=== PATIENT | female | born 1960 | race Caucasian/White ===

== ENCOUNTER 2021-09-26 00:32 | Day surgery (SDC) | payer OTHER, SELFPAY ==
[2021-09-15 12:33] VITALS: BMI 31.6
[2021-09-26 08:09] VITALS: BP 117/82; PULSE 76; RESP 18; TEMP 36.1; O2SAT 95
[2021-09-26] MEDS: LACTATED RINGERS 1,000 ML 150 ML IV CONT (08:11)
--- NOTE | 2021-09-26 08:41 | WPDANESEPPF ---
Anes - Initial Pre Proc Eval Procedure: Operation Date: 09/26/21 09:30 Proposed Procedures p Screening Colonoscopy - Isaiah Rankin MD Date/Time: 09/26/21 08:41 Surgeon: Isaiah Rankin MD Pre Op Diagnosis: hx of colon polyps, neoplasm screening Patient Data Age: 61 Gender: F Height: 1.78 m Weight: 97.1 kg Last Vital Signs Temp 97 F L 09/26/21 08:09 Pulse 76 09/26/21 08:09 Resp 18 09/26/21 08:09 BP 117/82 09/26/21 08:09 Pulse Ox 95 09/26/21 08:09 Allergies Allergy/AdvReac Type Severity Reaction Status Date / Time No Known Allergies Allergy Mild Unverified 09/26/21 08:08 Home Medications Medication Instructions Recorded Confirmed Type lorazepam [Ativan] 2 mg PO PRN PRN 09/15/21 09/26/21 History Patient hx anesthesia problems: none Family hx anesthesia problems: none Results Review: All pre-operative results and documents have been reviewed as part of the pre-operative evaluation. [facility] Past Medical History Medical History (System 09/11/21 @ 16:33 by Ale Tuttle) History of anxiety History of depression History of hepatitis C Surgical History Surgical History (System 09/11/21 @ 16:33 by Ale Tuttle) History of appendectomy History of cardiac radiofrequency ablation Social History Social History (System 09/11/21 @ 16:33 by Ale Tuttle) Smoking packs per day: 2 Smoking cigarettes per day: 40.0 Years smoked: 30 Smoking pack-years: 60.00 Smoking status: Current some day smoker Tobacco type: e-cigarettes/vaping Alcohol intake: current Alcohol use details: Occasional social drinking Substance use: current Substance use type: marijuana Living arrangements: with family Spiritual care concerns: No Anes - Eval Final PreProcedure Day of Procedure 09/26/21 08:41 Patient weight: obese Heart: regular rate and rhythm Lungs: clear to auscultation Airway: Mallampati scale class II Neurological: alert and oriented Last oral intake: >/= 8 hours ASA classification: III Emergent: no Anesthetic plan: proceed Anesthesia type and monitoring: general GIVS and standard monitoring Results Review: All pre-operative results and documents have been reviewed as part of the pre-operative evaluation. Informed Consent: The patient's anesthetic plan and its attendant risks and benefits were discussed with the patient/family/POA. Questions were solicited and answers provided to the satisfaction of the patient/family/POA.
--- NOTE | 2021-09-26 09:05 | PM.HPGS ---
History of Present Illness History of Present Illness Consent: Risks, benefits, and alternatives have been discussed and questions answered. Patient agrees to proceed with procedure. Chief complaint: hx of colon polyps, neoplasm screening Narrative: Marissa Leung is a 61 year old female with colon polyp in 2017 Review of Systems Constitutional: Constitutional: Denies headache(s) and Denies weakness Eyes: Eyes: Denies blurry vision ENT: Reports Normal hearing present, Denies headache(s) and Denies neck pain Cardiovascular: Cardiovascular: Denies chest pain and Denies dyspnea Respiratory: Respiratory: Denies dyspnea Gastrointestinal: Gastrointestinal: Reports no additional gastrointestinal complaints Genitourinary: Genitourinary: Denies dysuria Musculoskeletal: Musculoskeletal: Denies neck pain Integumentary/Breasts: Skin/Breast: Denies dry skin Neurologic: Reports Normal hearing present, Denies headache(s) and Denies weakness Psychiatric: Psychiatric: Denies anxiety Endocrine: Endocrine: Denies change in body appearance Hematologic/Lymphatic: Hematologic/Lymphatic: Denies easy bleeding Allergic/Immunologic: Allergic/Immunologic: Denies urticaria PMFSH Past Medical History Medical History (Updated 09/26/21 @ 09:06 by Isaiah Rankin MD) Adenomatous colon polyp History of anxiety History of depression History of hepatitis C Surgical History Surgical History (System 09/11/21 @ 16:33 by Ale Tuttle) History of appendectomy History of cardiac radiofrequency ablation Social History Social History (System 09/11/21 @ 16:33 by Ale Tuttle) Smoking packs per day: 2 Smoking cigarettes per day: 40.0 Years smoked: 30 Smoking pack-years: 60.00 Smoking status: Current some day smoker Tobacco type: e-cigarettes/vaping Alcohol intake: current Alcohol use details: Occasional social drinking Substance use: current Substance use type: marijuana Living arrangements: with family Spiritual care concerns: No Meds Home Medications and Allergies Home Medications Medication Instructions Recorded Confirmed Type lorazepam [Ativan] 2 mg PO PRN PRN 09/15/21 09/26/21 History Allergies Allergy/AdvReac Type Severity Reaction Status Date / Time No Known Allergies Allergy Mild Unverified 09/26/21 08:08 Vital Signs Vital Signs - 24 hr 09/26/21 08:09 Temperature 97 F L Pulse Rate 76 Respiratory Rate 18 Blood Pressure 117/82 Pulse Oximetry 95 Exam Const: General: comfortable and no acute distress HENMT: General nose exam: Normal nares present Eyes: General: appearance normal, both eyes and all related structures Neck: Neck: no JVD Resp: Auscultation: clear to auscultation bilaterally Cardio: Rate: regular rate Rhythm: regular rhythm GI: Inspection: non-distended GI Palp: Yes Soft to palpation Skin: General skin exam: normal color Neuro: General: gait normal Speech: normal speech Extrem: General: normal to inspection Psych: Mental Status: mental status grossly normal Assessment and Plan Assessment and plan (1) Adenomatous colon polyp: Code(s): D12.6 - Benign neoplasm of colon, unspecified Status: Acute Assessment and Plan: colonoscopy
[2021-09-26 09:34] VITALS: BP 111/71; PULSE 62; RESP 19; O2SAT 97
[2021-09-26 09:44] VITALS: BP 103/66; PULSE 65; RESP 18; O2SAT 96
[2021-09-26 09:54] VITALS: BP 103/65; PULSE 58; RESP 15; O2SAT 94
== END 2021-09-26 10:13 | disposition home or self-care (01) ==
PROVIDERS: PCP Emergency Medicine; Visit Provider Internal Medicine Gastroenterology
PROC: 0DJD8ZZ Inspection of Lower Intestinal Tract, Via Natural or Artificial Opening Endoscopic (ICD-10-PCS; CPT 45378; principal; 2021-09-26 09:30)
DX: Z12.11 Encounter for screening for malignant neoplasm of colon (principal); D12.3 Benign neoplasm of transverse colon; D12.4 Benign neoplasm of descending colon; K57.30 Diverticulosis of large intestine without perforation or abscess without bleeding; K64.8 Other hemorrhoids; F41.8 Other specified anxiety disorders; Z86.19 Personal history of other infectious and parasitic diseases; F17.290 Nicotine dependence, other tobacco product, uncomplicated; F12.90 Cannabis use, unspecified, uncomplicated; E66.9 Obesity, unspecified; Z68.30 Body mass index [BMI] 30.0-30.9, adult
CPT/HCPCS: 45385; 88305; J2704; J7120

== ENCOUNTER 2022-01-22 13:50 | Emergency (ER) | payer BC, SELFPAY ==
[2022-01-22 13:58] VITALS: BP 136/89; PULSE 88; RESP 16; TEMP 36.7; O2SAT 97
--- NOTE | 2022-01-22 14:06 | ED.URI ---
HPI - URI/Sore Throat General Chief Complaint: Upper Respiratory Infection Stated Complaint: sore throat, cold sypmtoms Source: patient and RN notes reviewed Mode of arrival: ambulatory Limitations: no limitations History of Present Illness HPI Narrative: 61-year-old female presented for complaint of sore throat, mild cough and chest tightness for over 1 week. For the last 5 days she has taken an old prescription of penicillin and started taking Mucinex, she thinks it is improving some. Denies shortness of breath, wheezing, nausea, vomiting, diarrhea, fevers or chills. Endorses sick contacts, states she is taken negative home COVID test. MD elicited complaint: cough Related Data Home Medications Medication Instructions Recorded Confirmed lorazepam 2 mg tablet (Ativan) 2 mg PO PRN PRN Anxiety 09/15/21 09/26/21 Allergies Allergy/AdvReac Type Severity Reaction Status Date / Time No Known Allergies Allergy Mild Verified 11/30/21 07:50 Review of Systems Review of Systems: CONSTITUTIONAL: Denies malaise, chills, sweats, fever EYES: Denies visual changes, redness, or discharge ENT: Denies rhinorrhea, congestion, sinus pain, otalgia, sore throat CARDIOVASCULAR: Denies chest pain, palpitations, edema RESPIRATORY: Reports cough, post nasal drainage. Denies dyspnea GASTROINTESTINAL: Denies abdominal pain, nausea, vomiting, diarrhea SKIN: Denies rash or itching MUSCULOSKELETAL: Denies myalgia NEUROLOGIC: Denies headache PMFSH Past Medical History Medical History Adenomatous colon polyp Arthritis COPD (chronic obstructive pulmonary disease) History of anxiety History of depression History of hepatitis C Surgical History Surgical History History of appendectomy History of cardiac radiofrequency ablation Family History Family History Other Family history of cancer Heart disease Hypertension Social History Social History Smoking packs per day: 2 Smoking cigarettes per day: 40.0 Years smoked: 30 Smoking pack-years: 60.00 Smoking status: Current some day smoker Tobacco type: e-cigarettes/vaping Alcohol intake: current Alcohol use details: Occasional social drinking Substance use: current Substance use type: marijuana Gender identity (if verbalized by the patient): Female Spiritual care concerns: No Exam Narrative: GENERAL: Ill-appearing, nontoxic EYES: conjunctivae clear ENT: Mucous membranes moist. TMs pearly wu with dull light reflex bilaterally; no tragal tenderness. Oropharynx erythematous without lesions or exudate, no drooling, no hoarseness, no trismus, uvula midline. CHEST: Clear to auscultation, breath sounds equal. No wheezing, rhonchi, rales, or stridor. No respiratory distress, speaks in full sentences. HEART: Regular rate and rhythm. No murmur heard. SKIN: Warm, dry, no rash. NEURO: Alert and oriented x3. PSYCH: Normal mood and affect Course Course Emergency Course: Patient is aware of diagnosis, understands and agrees to treatment plan. Anticipatory guidance given. Patient agrees to follow-up as directed and is aware of reasons to seek care at the emergency department. Portions of this record may have been created with voice recognition software Level of Care: Express Care Visit Vital Signs Vital signs: Vital Signs Temperature 98.1 F 01/22/22 13:58 Pulse Rate 88 01/22/22 13:58 Respiratory Rate 16 01/22/22 13:58 Blood Pressure 136/89 01/22/22 13:58 Pulse Oximetry 97 01/22/22 13:58 Temperature 98.1 F 01/22/22 13:58 Pulse Rate 88 01/22/22 13:58 Respiratory Rate 16 01/22/22 13:58 Blood Pressure 136/89 01/22/22 13:58 Pulse Oximetry 97 01/22/22 13:58 reviewed MDM - URI/Sore Throat MDM N
== END 2022-01-22 14:12 | disposition home or self-care (01) ==
PROVIDERS: Emergency Provider Nurse Practitioner Family; PCP Emergency Medicine
DX: J40 Bronchitis, not specified as acute or chronic (principal); J44.9 Chronic obstructive pulmonary disease, unspecified; M19.90 Unspecified osteoarthritis, unspecified site; F41.9 Anxiety disorder, unspecified; F17.290 Nicotine dependence, other tobacco product, uncomplicated
CPT/HCPCS: 99213; G0463

== ENCOUNTER 2022-07-27 09:51 | Outpatient (CLI) | payer BC, SELFPAY ==
--- NOTE | 2022-07-27 13:53 | WPDPFTINT ---
PFT Procedure Performed PFT Procedure Performed Spirometry with Pre/Post Bronchodilator Plethysmography (Lung Vol) Diffusing Cap (DLCO) Flow Vol Loop PFT Interpretation Lung volumes were measured with the body plethysmography method. The diminished expiratory reserve volume is related to obesity. The remaining lung volumes are unremarkable. Spirometry showed normal FVC, normal FEV1, diminished mid-expiratory flow rates at 44% predicted, and a diminished FEV1 to FVC ratio 64% suggestive of mild obstructive airway disease. Following administration of a bronchodilator there was significant increase in the expiratory flow rates. Lung diffusion capacity is within the normal range at 80% predicted. The flow-volume loop is consistent with small airway disease. Impression: Mild obstructive airway disease mostly in the form of small airway dysfunction. Significant response to bronchodilators. Lung diffusion capacity within normal range.
== END 2022-07-27 09:52 | disposition home or self-care (01) ==
PROVIDERS: PCP Emergency Medicine; Visit Provider Emergency Medicine
DX: J43.2 Centrilobular emphysema (principal); R94.2 Abnormal results of pulmonary function studies
CPT/HCPCS: 94060; 94726; 94729

== ENCOUNTER 2023-08-19 10:28 | Outpatient (CLI) | payer BC, SELFPAY ==
--- NOTE | ~2023-08-19 | MR_ITS ---
EXAMINATION: MR brain/brain stem wo/w con DATE: 08/19/2023 11:22 INDICATION: Memory loss. TECHNIQUE: Magnetic resonance imaging (MRI) of the brain and brainstem was performed without and with 20 mL MultiHance intravenous contrast. COMPARISON: None. FINDINGS: There are scattered areas of nonspecific increased T2-weighted signal intensity in the cere bral white matter, which is within normal limits for the patient's age. There is no intracranial hemo rrhage, acute infarction, or abnormal intracranial mass lesion. The ventricles are normal in size. Th e paranasal sinuses are clear. There are likely changes of ocular lens replacement surgeries. The mas toid air cells are normal. IMPRESSION: 1. Normal aging brain. Reviewed, dictated and finalized at location A. T DEMONSTRATOR IMPRESSION: 1. Normal aging brain.
== END 2023-08-19 10:29 | disposition home or self-care (01) ==
PROVIDERS: PCP Emergency Medicine; Visit Provider Emergency Medicine
DX: R41.3 Other amnesia (principal)
CPT/HCPCS: 70553; A9577

== ENCOUNTER 2024-10-12 01:19 | Day surgery (SDC) | payer OTHER, SELFPAY ==
[2024-10-06 10:53] VITALS: BMI 33.3
--- OUTSIDE RECORDS SUMMARY | 2024-10-12 01:29 | XMS_ITS | Clinical Summary ---
Author Organization [facility] Address [address] [place] [address] Care Team Providers Care Rehab Department Manager Name Role Phone Devna Breaux MD Primary Care Provider [phone] Source Comments [facility],non-owned Affiliates and Associated Physician Practices is amultiple site organization consisting of ambulatory clinics and hospital sitesin [place], [place], [place] and [place]. This disclosure is being madepursuant to the Care Everywhere program and may not contain all information available regarding this patient. Last updated 18.[facility] Allergies No known active allergies Medications * Be aware that medications may not be up to date on this document. Alwaysverify current medications with the patient. Medication Sig Dispensed Refills Start Date End Date Status LORazepam (ATIVAN) 2 MG tablet 04/14/2021 Active semaglutide (Ozempic) 2 MG/1.5ML pen Inject 0.5 (one-half) mg subcutaneously every 7 days 07/12/2022 Active escitalopram (Lexapro) 10 MG tablet Take 1 (one) tablet by mouth once daily 06/12/2022 Active Active Problems Problem Noted Date Diagnosed Date Palpitations 07/24/2022 Assessment & Plan (07/24/2022 11:11 AM [employer]): Patient reported palpitations and generally feeling off when she saw Dr. Ribera in May. She stopped drinking caffeinated soda 2-3 days after her last visit, and her symptoms completely resolved other than rare palpitations. Event monitor showed symptomatic PVCs with 1% burden. -No indication for PVC ablation at this time with low burden. -Avoid caffeine. -Follow up in 1 year with dave Daniel. Class 2 obesity 07/23/2021 Fatty liver 07/23/2021 Overview (06/07/2022): Overall has had nl aminotransferases with mild elevations in ALP 12/21/2014 CT w/contrast hepatic steatosis, sigmoid diverticulosis 08/09/2021 steatosis, borderline splenomegaly 05/31/22 Fibroscan CAP 371, LSM 6.7 kPa Polycythemia 05/22/2021 VT (ventricular tachycardia) 02/15/2012 Overview (07/23/2021): Overview: S/p ablation with recurrence in the Ep lab. 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 Encounters Date Type Department Care Team Description 10/06/2024 Telephone [facility] [address] [facility] [place] [address] Cristopher Gunderson MD Appointment from Last 3 Months Family History Medical History Relation Name Comments Cancer - Renal Mother Relation Name Status Comments Mother Social History Tobacco Use Types Packs/Day Years Used Date Smoking Tobacco: Former Cigarettes 1.5 30 1 980 - 2009 Smokeless Tobacco: Never Tobacco Cessation:Counseling Given: Not Answered Alcohol Use Standard Drinks/Week Comments Yes 0 (1 standard drink = 0.6 oz pur e alcohol) 2 times a year: 5-6 each time Sex and Gender Information Value Date Recorded Sex Assigned at Not on file Gender Identity Not on file Sexual Orientation Not on file Last Filed Vital Signs Vital Sign Reading Time Taken Comments Blood Pressure 147/94 05/31/2022 3:45 PM [employer] Pulse 76 05/31/2022 3:45 PM [employer] Temperature 36.6 C (97.8 F) 05/31/2022 3:45 PM [employer] Respiratory Rate 16 02/27/2020 3:20 PM CDT Oxygen Saturation 97% 05/31/2022 3:45 PM [employer] Inhaled Oxygen Concentration - - Weight 104.3 kg (230 lb) 07/24/2022 10:24 AM [employer] Height 175.3 cm (5' 9 ) 07/24/2022 10:24 AM [employer] Body Mass Index 33.97 07/24/2022 10:24 AM [employer] Plan of Treatment Health Maintenance Due Date Last Done Comments BONE DENSITY TESTING 1959 COLOGUARD (AGES 45-75) - COLON CA SCREENING 1959 COLON MONITORING 1959 COLONOSCOPY - COLON CA SCREENING 1959 CT COLONOGRAPHY - COLON CA SCREENING 1959 Colorectal Cancer Screening 1959 FIT - COLON CA SCREENING 1959 FLEX SIG - COLON CA SCREENING 1959 HIV SCREENING 1974 DTAP/TDAP/TD VACCINES (1 - Tdap) 1978 PAP SMEAR 07/05/2001 07/05/1998 LUNG CANCER SCREENING 2009 PNEUMOCOCCAL VACCINE 50+ (1 of 1 - PCV) 2009 ZOSTER VACCINE (1 of 2) 2009 LIPID TESTING 10/27/2015 10/26/2010, 02/19, 07/22/1998, Additional history exists MAMMOGRAM 05/03/2023 05/03/2021 COVID-19 VACCINE ( season) 2024 10/17/2020, 09/16/2020 INFLUENZA VACCINE (#1) 2024 2, 05/17/2020, 05/25/2019, Additional history exists DEPRESSION SCREENING 07/22/2024 SCREENING FOR DIABETES 05/31/2025 2, 02/17/2012, 02/16/2012, Additional history exists Respiratory Syncytial Virus (RSV) Vaccine Pt: or over 60 yrs (1 - 1-dose 75+ series) 2034 HEPATITIS C SCREENING Completed 07/20/2021 , 07/20/2021, 11/07/2010 HEPATITIS B VACCINE Aged Out No longe r eligible based on patient's age to complete this topic HIB VACCINE Aged Out No longer eligi ble based on patient's age to complete this topic HPV VACCINE Aged Out No longer eligi ble based on patient's age to complete this topic MENINGOCOCCAL (Group B) VACCINE SHARED DECISION-MAKING Aged Out No longer eligible based on patient's age to complete this topic MENINGOCOCCAL GROUPS A/C/Y/W VACCINE Aged Out No longer eligible based on patient's age to complete this topic Goals Goal Patient Goal Type Associated Problems Recent Progress Patient-Stated? Author Medication Management General On track( 022 11:04 AM [employer]PER[employer]) Dyan Martinez, RN Note: Expected end date: ongoing Interventions: Take all medications as prescribed Let your doctor know right away about any changes in your medications Make sure to request a refill of your medication at least one week prior to your last dose Procedures Procedure Name Priority Date/Time Associated Diagnosis Comments COMPREHENSIVE METABOLIC PANEL Routine 05/31/2022 9:15 AM [employer] Fatty liver Hepatic fibrosis LIPID PROFILE Routine 10/26/2010 3:54 PM CDT CYTOLOGY SMEAR PAP THIN PREP AGUILA 07/05/1998 10:16 AM [employer]PER[employer]KS from Last 3 Months or Most Recently Relevant to Health Maintenance Results * (ABNORMAL) COMPREHENSIVE METABOLIC PANEL (05/31/2022 9:15 AM [employer]PER[employer]) Glucose 103(H) 65 - 99 mg/dL [facility] Comment: Fasting reference interval For someone without known diabetes, a glucose value between 100 and 125 mg/dL is consistent with prediabetes and should be confirmed with a follow-up test. BUN 14 7 - 25 mg/dL [facility] Creatinine 0.79 0.50 - 1.05 mg/dL [facility] eGFR by Cystatin C 84 > OR = 60 mL/min/1. 73m2 [facility] Comment: The eGFR is based on the CKD-EPI 202 equation. To calculate the new eGFR from a previous Creatinine or Cystatin C result, go to https://www.kidney.org/professionals/ kdoqi/gfr%5Fcalculator BUN/Creatinine Ratio NOT APPLICABLE 6 - 22 (calc) [facility] Sodium 141 135 - 146 mmol/L [facility] Potassium 4.4 3.5 - 5.3 mmol/L [facility] Chloride 105 98 - 110 mmol/L [facility] CO2 27 20 - 32 mmol/L [facility] Calcium 9.7 8.6 - 10.4 mg/dL [facility] Protein Total 7.1 6.1 - 8.1 g/dL [facility] Albumin 4.5 3.6 - 5.1 g/dL [facility] Globulin Total 2.6 1.9 - 3.7 g/dL (calc) [facility] Albumin/Globuli n Ratio 1.7 1.0 - 2.5 (calc) [facility] Bilirubin Total 1.0 0.2 - 1.2 mg/dL [facility] Alkaline Phosphatase 109 37 - 153 U/L [facility] AST 16 10 - 35 U/L [facility] ALT 18 6 - 29 U/L [facility] Comment: Test Performed at: [place] [address] MENDY HERNANDEZ DO,MPH Blood BLOOD SPECIMEN / Unknown 05/31/2022 9:15 AM [employer] 05/31/2022 9:17 AM [employer] Cristopher Gunderson MD LAB - CHEMISTRY AMEYA SHOOK Performing Organization Address [facility] Co de Phone Number [facility] [address] [place] [address] * (ABNORMAL) LIPID PROFILE (10/26/2010 3:54 PM CDT) Cholesterol Total 170 125 - 200 mg/dL [facility] ([facility]) Comment: Test Performed at: [place] [address] MENDY HERNANDEZ DO,MPH HDL 38(L) > OR = 46 mg/dL [facility] ([facility]) Triglycerides 190(H) <150 mg/dL [facility] ([facility]) LDL Calculated 94 <130 mg/dL (calc) [facility] ([facility]) Comment: Desirable range <100 mg/dL for patients with CHD or diabetes and <70 mg/dL for diabetic patients with known heart disease. Chol/HDL Ratio 4.5 < OR = 5.0 (calc) [facility] ([facility]) 10/26/2010 3:54 PM CDT 10/26/2010 4:01 PM CDT Arturo Matthew MD LAB - CHEMISTRY ORDBernie SHOOK Performing Organization Address City/[facility]/ZIP Co de Phone Number [facility] ([facility]) * CYTOLOGY SMEAR PAP THIN PREP (07/05/1998 10:16 AM SUPERVISOR [employer]ERKS) Result CASE NUMBER [id number] Comment: ORDERING PHYSICIAN ILDEFONSO KWOK SPECIMEN TYPE PAP Smear Date 07/13/1998 Procedure Cervical/Endocervical, 1 Vial for Thin Prep Received Specimen Adequacy Satisfactory for Evaluation Categorization Within Normal Limits Snomed. 07/19/1998 1718 <1> Inspector Structural Bonding Jarrett De La Cruz (ASCP) PAP Footnote The PAP smear is only a screening procedure to aid in the detection of cervical cancer and its precursors. It is not a diagnostic procedure and should not be used as the sole means to detect cervical cancer. Both false negative and false positive results have been experienced. MISCELLANEOUS SAMPLES / Unknown 07/05/1998 10:16 AM SUPERVISOR [employer]ERKS 07/14/1998 10:16 AM SUPER[employer]OR [employer]ERKS Historical Provider LAB - PATHOLOGY/C YTOLOGY ORDERABLES from Last 3 Months or Most Recently Relevant to Health Maintenance Care Teams Rehab Department Manager Relationship Specialty Start Date End Date Devan Breaux MD PCP - General 04/18/21
--- OUTSIDE RECORDS SUMMARY | 2024-10-12 01:29 | XMS_ITS | Continuity of Care Document ---
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 from [facility] liver doctor yet . Pt denies any abd pain colon polyp1 Pt has tubular a denoma on colonoscopy 2017 Pt denies any GI issue. Pt denies any GI bleeding polycythemia1 Pt has persisten t polycythemia. pt has high ferritin. Pt does have severe sleep apnea and history of heavy tobacco consumption. Pt no longer smoking Pt takes baby ASA daily .Pt has history of hep C, which was treated successfully. Pt denies any abdominal pain Pt has normal LFt and ultrasound. Pt denies any jaundice. Pt no longer drinks alcohol insomnia1 Pt has insomnia Pt takes ativan qhs PRn and doing ok HTN Pt has HTN. Pt s tates that she checked her bp and her bp is around 130/60 at home. 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 Pt denies any chest pain or palpitation pt denies any syncope . Pt saw cardiology recently and she was told cardiac status ok WPS Pt has WPS s/p c ardiac ablation. Pt denies any chest pain or palpitation pt denies any syncope Pt sees cardiology Pt has dennise with cardiology next week sleep anpea1 Pt has sleep process helper ea and fatigue Pt has not set up cpap yet Pt received a call from [facility] but she has not set up yet lung nodule1 Pt has multiple small lung nodule Pt no longer smoking Pt denies any hemoptysis, sob or cough .Pt had benign lung CT insomnia Pt has insomnia .Pt takes ativan qhs PRn and doing ok pt denies any issue . HTN Pt has borderlin e HTN Pt states that her bp is around 130/80 at home . Pt denies any chest pain or headache or sob sleep apnea1 Pt has moderate sleep apnea with significant oxygen desaturation at night. Pt does snore .Pt has chronic fatigue. lung nodule1 Pt no longer smo skylar. Pt denies any hemoptysis, sob or cough Pt had LDCT done which showed multiple small lung nodule hep c Pt has history o f hep C, which was treated successfully .pt denies any ab pain. liver ultrasound ok. insomnia1 Pt has insomnia. Pt takes ativan qhs PRn and doing ok. Pt needs refill soon weight loss1 Pt has been diet and exercising and intentionally losing weight. Pt denies any appetite loss, nausea, vomiting, diarrhea, change of bowel, early satiety, blood in stool, abd pain. GERD etc. folate1 Pt has borderlin e low folate ,Pt does not eat a lot of green vegetable pt denies any neuropathy or fatigue polycythemia1 Pt has mild poly cythemia. Pt does not smoke Pt does snore. Pt denies any fatigue. Pt denies any family history of bone marrow disease. Hep C Pt had exposure to hep C but she was treated in the past and currently she is hep c viral free. Pt denies any IV drug use or blood transfusion tobacco1 Pt needs LDCT du e to history of smoking. Pt denies any hemoptysis, sob or cough .Pt no longer smoking physical Pt needs annual physical. pt has chronic insomnia Pt takes ativan qhs PRn and doing ok. Pt denies any snoring .Pt denies any difficulty with breathing at night Pt overall feels well. Pt denies any other complaints insomnia Pt has chronic i nsomnia Pt denies any snoring .Pt sleeps well with ativan qhs .Pt denies any depression or any suicidal thought. pt failed OTC meds. insomnia Pt has chronic i nsomnia and anxiety. Pt takes ativan qhs PRn and doing ok Pt denies any snoring or any trouble with breathing at night .Pt needs refill rash Pt states that r travis resolved completely. rash1 Pt contacted poi son IV rash 11 days ago. Pt notices itchy rash all over and she went to urgent care and she was given taping dose of prednisone and she just finished yesterday. Pt states that poison IV rash went away but she developed a new type or rash front of chest and both of her knees since 4-5 days ago. Pt feels that the new rash is different than poison IV rash Pt states that the rash feels itching and also feels warmth. Pt denies any blisters or drainage Pt denies any fever, sore throat ,trouble with breathing or swallowing. Pt took 60 mg prednisone x 4 days, then 40 mg for 5 days and then 20 mg for 5 days. Pt just finished prednisone yesterday. Pt denies any polyuria, polydipsia. insomnia1 Pt has insomnia and she takes ativan qhs PRn and doing ok Pt needs refill .Pt denies any snoring. Pt denies any trouble with breathing at night Instructions Date Instruction Additional Infor mation No Information Assessments Type Assessment Date No Information
--- OUTSIDE RECORDS SUMMARY | 2024-10-12 01:30 | XMS_ITS | Clinical Summary ---
Author Organization [facility] Address [address] [place] [address] Care Team Providers Care Silverware Supervisor Name Role Phone Patti Garcia MD Unavailable [phone] Allergies No known active allergies Medications famciclovir (FAMVIR) 500 mg tablet famciclovir 500 mg tablet Active cetirizine 10 mg tablet,disinteg rating daily. 6 Active LORazepam (ATIVAN) 2 mg tablet 0 1 Active Trulicity 0.75 mg/0.5 mL pen injector 3 Active albuterol HFA (PROVENTIL HFA,VENTOLIN HFA,PROAIR HFA) 90 mcg/actuation inhaler 3 Active Advair Diskus 250-50 mcg/dose diskus inhaler 3 Active escitalopram (LEXAPRO) 10 mg tablet 3 Active valACYclovir (VALTREX) 1 gram tablet Take 2 tablets by mouth every 12 hours for 1 day 2 Active phentermine (ADIPEX-P) 37.5 mg tablet Take 1 tablet (37.5 mg total) by mouth daily before breakfast 4 Active sulfacetamide (BLEPH-10) 10 % ophthalmic solution Active gentamicin (GARAMYCIN) 0.1 % cream Active Active Problems Problem Noted Date Diagnosed Date Encounter for well woman exjerry m with routine gynecological exam 10/24/2023 Assessment & Plan (10/24/2023 12:02 PM CDT): - Last Pap NILM, HPV neg 03/2020, due 2024 - Sexually active: no - Vaginal discharge or irritation: no - Routine STI testing offered, declines - Mammogram: 08/20/2022 BIRADS 1, completed screening today - Colonoscopy: 03/2017 polyps, recommended to be repeated after 3 years, performed through her PCP, visit scheduled next week - Dexa: recommended at age 64, has had a DEXA scan performed already - Reviewed AHA recommendation of 150 minutes of moderate-intensity activity per week, not exercising as much as should per patient, had lost 40 lbs and then gained the weight back, encouraged adding in more activity - Counseled on consuming varied diet rich in whole grains and fruits/vegetables, working on having more fiber - Anticipatory guidance provided, discussed CELIA, overall rare for patient and not bothersome, however discussed kegel exercises, behavioral changes, and consideration for intervention if symptom becomes bothersome Palpitations 07/24/2022 Overview (08/20/2022): Last Assessment & Plan: Patient reported palpitations and generally feeling off when she saw Dr. Ribera in May. She stopped drinking caffeinated soda 2-3 days after her last visit, and her symptoms completely resolved other than rare palpitations. Event monitor showed symptomatic PVCs with 1% burden. -No indication for PVC ablation at this time with low burden. -Avoid caffeine. -Follow up in [address] Ribera, sooner PRN. Class 2 obesity 07/23/2021 Fatty liver 07/23/2021 Overview (08/20/2022): Overall has had nl aminotransferases with mild elevations in ALP 12/21/2014 CT w/contrast hepatic steatosis, sigmoid diverticulosis 08/09/2021 steatosis, borderline splenomegaly 05/31/22 Fibroscan CAP 371, LSM 6.7 kPa Polycythemia 05/22/2021 Disorder of shoulder 03/29/2020 Localized, primary osteoarthritis of hand 2019 Right-sided low back pain without sciatica 01/06 Ankle pain 04/01/2018 Foot pain 04/01/2018 Heel pain 04/01/2018 Ingrowing nail 04/01/2018 Onychomycosis due to dermatophyte 04/01/2018 Pain in limb 04/01/2018 Plantar fasciitis 04/01/2018 Cervical radiculopathy 10/23/2013 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 Resolved Problems Problem Noted Date Diagnosed Date Resolved Date Thickened endometrium 02/25/20172019 Post-menopausal bleeding 01/17/201702/2020 Abnormal uterine bleeding 01/03/2016 Abscess of Bartholin's gland 05/03/2021 Overview (05/03/2021): Bartholin's gland abscess - (Added by TW Conv) Cyst of Bartholin's gland Overview (05/03/2021): Bartholin gland cyst - (Added by TW Conv) Immunizations Immunization Administration Dates Next Due Influenza, Quadrivalent, Spl it, Intramuscular 05/25/2019 Influenza, Quadrivalent, Spl it, Preservative Free, Intramuscular 05/02/2022,05/17/2020,06/17/2018,06/17 Moderna SARS-CoV-2 Monovalen t Vaccination (12+ YRS) 10/17/2020,09/16/2020 Pneumococcal Polysaccharide PPV23 10/07/2019 ZOSTER Recombinant 09/05/2019,05/25/2019, 019 Surgical History Surgery Date Site/Laterality Comments [place] APPENDECTOMY Appendectomy - (Added by TW Conv) LIVER BIOPSY Percutaneous Needle Liver Biopsy - (Added by TW Conv) ABLATION Catheter Ablation - (Added by TW Conv) KNEE ARTHROSCOPY CHOLECYSTECTOMY FOOT SURGERY Medical History Medical History Date Comments Other nonspecific abnormal f inding of lung field Abnormal chest x-ray with mu ltiple lung nodules - (Added by TW Conv) Personal history of other in fectious and parasitic diseases History of hepatitis C - (Ad ded by TW Conv) Cyst of Bartholin's gland Bartho joyce gland cyst - (Added by TW Conv) Abscess of Bartholin's gland Bar tholin's gland abscess - (Added by TW Conv) Pre-excitation syndrome Ronn-Pa rkinson-White syndrome - (Added by TW Conv) Palpitations Palpitations - ( Added by TW Conv) Ventricular tachycardia (HCC) Pa roxysmal ventricular tachycardia - (Added by TW Conv) Other nonspecific abnormal f inding of lung field Abnormal chest x-ray with mu ltiple lung nodules - (Added by TW Conv) Rash and other nonspecific skin eruption Rash - (Added by TW Conv) Other hypertrophic disorders of the skin Acrochordon - (Added by TW Conv) Basal cell carcinoma of skin of left lower limb, including hip BCC (basal cell carcinoma), leg, left - (Added by TW Conv) Neoplasm of unspecified beha vior of bone, soft tissue, and skin Skin neoplasm - (Added by TW Conv) Inflamed seborrheic keratosis In flamed seborrheic keratosis - (Added by TW Conv) Obesity Decreased liver function Infectious viral hepatitis Family History Medical History Relation Name Comments Alcohol abuse Father Heart disease Maternal Grandfather Family history of cardiac disorder - Relation: Grandfather (Added by TW Conv) Cancer Mother Family history of malignant neoplasm - (Added by TW Conv) Kidney disease Mother Family histor y of kidney disease - (Added by TW Conv) Relation Name Status Comments Father Maternal Grandfather Mother Social History Tobacco Use Types Packs/Day Years Used Date Smoking Tobacco: Former Cigarettes 1.5 33 1 966 - 1998 Smokeless Tobacco: Never Tobacco Cessation:Counseling Given: Not Answered Alcohol Use Standard Drinks/Week Comments Yes 0 (1 standard drink = 0.6 oz pur e alcohol) Exercise Vital Sign Answer Date Recorde d On average, how many days pe r week do you engage in moderate to strenuous exercise (like a brisk walk)? 3 days 03/29/2020 On average, how many minutes do you engage in exercise at this level? 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 Gender Identity Female 05/06/2021 10:10 AM CDT Sexual Orientation Not on file Occupation Industry Job Start Date Job End Date Retired Not on file Not on file Not on file Obstetrics History Para Term AB IAB SAB Ectopic Multiple Livin g Live Births 2 2 2 2 2 Date Outcome GA Total Labor Labor/2nd/3rd Weight Sex Type Anes PTL Ester A1 A5 Name Clin 1974 Term 3.799 kg (8 lb 6 oz) F Vag-S pont Living 1980 Term 3.856 kg (8 lb 8 oz) F Vag-S pont N Living Complications:None Last Filed Vital Signs Vital Sign Reading Time Taken Comments Blood Pressure 121/85 10/24/2023 11:20 AM CDT Pulse 90 10/24/2023 11:20 AM CDT Temperature 36.4 C (97.6 F) 05/06/2021 11:38 AM CDT Respiratory Rate 16 05/06/2021 11:3 8 AM CDT Oxygen Saturation 97% 05/06/2021 11: 38 AM CDT Inhaled Oxygen Concentration - - Weight 109.2 kg (240 lb 12.8 oz) 2023 11:20 AM CDT Height 170.2 cm (5' 7.01 ) 10/24/2023 1 1:20 AM CDT Body Mass Index 37.71 10/24/2023 11:20 AM CDT Plan of Treatment Health Maintenance Due Date Last Done Comments Depression Screening 1959 Fall Risk Assessment 1959 Hepatitis C Screening 1959 DTaP/Tdap/Td Vaccine (1 - Tdap) 1970 Hepatitis B Screening 1977 Osteoporosis Screening-Bone Density Scan 10/29/2014 10/29/2012 Pneumococcal vaccine 65+ (2 of 2 - PCV) 10/06/2020 10/07/2019 Cervical Cancer Screening 03/29/20212019, 04/01/2018, 10/25/2014 Covid-19 Vaccine (3 - 2023-2 5 season) 2024 10/17/2020, 09/16/2020 Influenza Vaccine (#1) 2024 , 05/17/2020, 05/25/2019, Additional history exists Breast Cancer Screening-Mammogram 10/23/2024 10/24/2023, 08/20/2022, 05/03/2021, Additional history exists Well Visit 65+ 10/23/2024 10/24/2023, 07/24, 05/03/2021, Additional history exists Colon Cancer Screening-Colonoscopy 04/03/2027 04/03/2017, 07/22/2011 Colon Cancer Screening-CT Colonography Discontinued 04/03/2017, 07/22/2011 Colon Cancer Screening-DNA Stool Discontinued 04/03/20 17, 07/22/2011 Colon Cancer Screening-FIT Discontinued 04/03/2017, Colon Cancer Screening-Sigmoidoscopy Discontinued 04/03/2017, 07/22/2011 Zoster Vaccine Completed 09/05/2019, 10/2018, 05/25/2019 Procedures Procedure Name Priority Date/Time Associated Diagnosis Comments SCREENING MAMMOGRAM BILATERAL W PERCY Schedule Routine, Read Routine (OP Routine) 10/24/2023 10:14 AM CDT Screening mammogram, encounter for PAP ONLY Routine 03/29/2020 3:39 PM CDT COLONOSCOPY REPORT 04/03/2017 HM DEXA SCAN Routine 10/29/2012 from Last 3 Months or Most Recently Relevant to Health Maintenance Results * Screening Mammogram Bilateral W Percy (10/24/2023 10:14 AM CDT) Anatomical Region Laterality Modality Breast Bilateral Mammography Narrative 10/25/2023 4:28 PM CDT Mammogram Technique: Bilateral Digital Breast Tomosynthesis, Bilateral C-view 2D Screening mammogram. Views obtained: bilateral craniocaudal and bilateral mediolateral oblique. Computer Aided Detection was performed. Mammogram Findings: The present examination has been compared to prior imaging studies performed at [facility] on 03/29/2020, 05/03/2021 and 08/20/2022. There are scattered areas of fibroglandular density. There is no suspicious abnormality in either breast. Impression: There is no mammographic evidence of malignancy. Annual screening mammography is recommended. OVERALL FINAL ASSESSMENT: BI-RADS CATEGORY 1: Negative. Procedure Note Becca Durand MD - 10/25/2023 Mammogram Technique: Bilateral Digital Breast Tomosynthesis, Bilateral C-view 2D Screening mammogram. Views obtained: bilateral craniocaudal and bilateral mediolateral oblique. Computer Aided Detection was performed. Mammogram Findings: The present examination has been compared to prior imaging studies performed at [facility] on 03/29/2020,05/03/2021 and 08/20/2022. There are scattered areas of fibroglandular density. There is no suspicious abnormality in either breast. Impression: There is no mammographic evidence of malignancy. Annual screening mammography is recommended. OVERALL FINAL ASSESSMENT: BI-RADS CATEGORY 1: Negative. Self Screening Mammogram IMG MAMMO PROCEDURES Fi nal Result * Pap Only (03/29/2020 3:39 PM CDT) CLINICAL INFORMATION: Postmenopausal SCREENING [facility] LMP POSTMENO [facility] Previous Pap INFORMATION NOT PROVIDED [facility] Prev. Bx INFORMATION NOT PROVIDED [facility] SOURCE: Cervix, Endocervix [facility] Pap, specimen adequacy Satisfactory for evaluation. Endocervical/cisneros sformation zone component present. [facility] HPV interp Negative for intraepithelial lesion or malignancy. 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 Comment [facility] Comment: EXPLANATORY NOTE: The Pap is a screening test for cervical cancer. It is not a diagnostic test and is subject to false negative and false positive results. It is most reliable when a satisfactory sample, regularly obtained, is submitted with relevant clinical findings and history, and when the Pap result is evaluated along with historic and current clinical information. 03/29/2020 3:39 PM CDT 03/30/2020 8:42 AM CDT Yomaira Webster MD LAB CYTOLOGY ORDERABLES F inal Result [facility] [address] [address] [place] [address] * COLONOSCOPY REPORT (04/03/2017) Anatomical Region Laterality Modality Other Provider Scanning GI PROCEDURE ORDERABLES Final Result * DEXA SCAN (10/29/2012) DEXA Scan Unknown Historical Provider HEALTH MAINTENANCE Final Result from Last 3 Months or Most Recently Relevant to Health Maintenance Insurance [id number] [place] [address] [facility] ADVANTAGE CHOICE PPO [id number] (Work) [address] [place] [address] CHOICE [facility] PPO [place] [employer] CHOICE PPO Care Teams Silverware Supervisor Relationship Specialty Start Date End Date Patti Garcia MD [address] [address] Obstetrics and Gynecology 10/05/24
--- OUTSIDE RECORDS SUMMARY | 2024-10-12 01:30 | XMS_ITS | Referral Summary ---
Author Organization [facility] Address [address] [place] [address] Care Team Providers Care Extension Course Counselor Name Role Phone Patti Garcia MD Unavailable [phone] Allergies No known active allergies Medications [...] Date Diagnosed Date Encounter for well woman exa m with routine gynecological exam 10/24/2023 Assessment [...] Polysaccharide PPV23 10/07/2019 ZOSTER Recombinant 09/05/2019,05/25/2019, 019 Social History Tobacco Use Types Packs/Day Years Used Date Smoking Tobacco: Former Cigarettes 1.5 33 1 966 - 1999 Smokeless Tobacco: Never Tobacco Cessation:Counseling Given: Not [...] on file 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 Gender Identity Female 05/06/2021 10:10 AM CDT Sexual Orientation Not on file Occupation Industry Job Start Date Job End Date Retired Not on file Not on file Not on file Last Filed Vital Signs [...] 10/24/2023 11:20 AM CDT Plan of Treatment Not on file Procedures Procedure Name Priority Date/Time Associated Diagnosis Comments SCREENING MAMMOGRAM BILATERAL W BRANDIN Schedule Routine, Read Routine (OP Routine) 10/24/2023 10:14 AM CDT Screening mammogram, encounter for PAP ONLY Routine 03/29/2020 3:39 PM CDT COLONOSCOPY REPORT 04/03/2017 HM DEXA SCAN Routine 10/29/2012 from Last 3 Months or Most Recently Relevant to Health Maintenance Results * Screening Mammogram Bilateral W Brandin (10/24/2023 10:14 AM CDT) Anatomical Region Laterality Modality Breast Bilateral Mammography Narrative 10/25/2023 4:28 PM CDT Mammogram Technique: Bilateral Digital Breast Tomosynthesis, Bilateral C-view 2D Screening mammogram. Views obtained: bilateral craniocaudal and bilateral mediolateral oblique. Computer Aided Detection was performed. Mammogram Findings: The present examination has been compared to prior imaging studies performed at [facility] on 03/29/2020, 05/03/2021 and 08/20/2022. There are [...] compared to prior imaging studies performed at [facility] on 03/29/2020,05/03/2021 and 08/20/2022. There are scattered areas of fibroglandular density. There is no suspicious abnormality in either breast. Impression: There is no mammographic evidence of malignancy. Annual screening mammography is recommended. OVERALL FINAL ASSESSMENT: BI-RADS CATEGORY 1: Negative. us Self Screening Mammogram IMG MAMMO PROCEDURES Fi nal Result * Pap Only (03/29/2020 3:39 PM CDT) CLINICAL INFORMATION: Postmenopausal SCREENING [facility] LMP POSTMENO [employer] [facility] Previous Pap INFORMATION NOT PROVIDED [employer] [facility] Prev. Bx INFORMATION NOT PROVIDED [facility] [facility] SOURCE: Cervix, Endocervix [employer] [facility] Pap, specimen adequacy Satisfactory for evaluation. Endocervical/cisneros sformation zone component present. [employer] [facility] HPV interp Negative for intraepithelial lesion or malignancy. 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 [address] [facility] Comment [employer] [facility] Comment: EXPLANATORY NOTE: The Pap is a [...] MD LAB CYTOLOGY ORDERABLES F inal Result [facility] [address] [place] [address] * COLONOSCOPY REPORT (04/03/2017) Anatomical Region Laterality Modality Other Provider Scanning GI PROCEDURE ORDERABLES Final Result * DEXA SCAN (10/29/2012) DEXA Scan Unknown Historical Provider HEALTH MAINTENANCE Final Result from Last 3 Months or Most Recently Relevant to Health Maintenance Insurance [address] [place] [address] [employer] PPO [id number] (Work) [address] [place] [address] [place] CHO[place] PPO [place] [address] [place] [address] [employer] CHO[employer] PPO Care Teams Extension Course Counselor Relationship Specialty Start Date End Date Patti Garcia MD [address] [address] Obstetrics and Gynecology 10/05/24
--- OUTSIDE RECORDS SUMMARY | 2024-10-12 01:30 | XMS_ITS | Continuity of Care Document ---
Author Organization [email or web address] [place] Address [address] [facility] [address] [place] [address] Phone Care Team Providers Care Software Development Intern Name Role Phone Jimmy CHAVAEdgar Unavailable Unavailable Procedures Procedure Date PT RE-EVALUATION THERAPEUTIC EXERCISES NEUROMUSCULAR RE-ED MANUAL THERAPY FUNC ACTIVITY 15 MIN HOT/COLD PACK THERAPEUTIC EXERCISES NEUROMUSCULAR RE-ED MANUAL THERAPY FUNC ACTIVITY 15 MIN HOT/COLD PACK THERAPEUTIC EXERCISES NEUROMUSCULAR RE-ED MANUAL THERAPY FUNC ACTIVITY 15 MIN HOT/COLD PACK THERAPEUTIC EXERCISES NEUROMUSCULAR RE-ED MANUAL THERAPY FUNC ACTIVITY 15 MIN HOT/COLD PACK ELECTRIC STIMULATION UNATT THERAPEUTIC EXERCISES NEUROMUSCULAR RE-ED MANUAL THERAPY FUNC ACTIVITY 15 MIN HOT/COLD PACK ELECTRIC STIMULATION UNATT THERAPEUTIC EXERCISES NEUROMUSCULAR RE-ED MANUAL THERAPY FUNC ACTIVITY 15 MIN HOT/COLD PACK ELECTRIC STIMULATION UNA THERAPEUTIC EXERCISES NEUROMUSCULAR RE-ED MANUAL THERAPY FUNC ACTIVITY 15 MIN HOT/COLD PACK ELECTRIC STIMULATION UNATT PT EVALUATION THERAPEUTIC EXERCISES NEUROMUSCULAR RE-ED MANUAL THERAPY HOT/COLD PACK ELECTRIC STIMULATION UNATT THERAPEUTIC EXERCISES NEUROMUSCULAR RE-ED MANUAL THERAPY FUNC ACTIVITY 15 MIN ULTRASOUND THERAPY HOT/COLD PACK ELECTRIC STIMULATION UNATT PT RE-EVALUATION THERAPEUTIC EXERCISES NEUROMUSCULAR RE-ED MANUAL THERAPY FUNC ACTIVITY 15 MIN ULTRASOUND THERAPY HOT/COLD PACK ELECTRIC STIMULATION UNATT THERAPEUTIC EXERCISES NEUROMUSCULAR RE-ED MANUAL THERAPY FUNC ACTIVITY 15 MIN ULTRASOUND THERAPY HOT/COLD PACK ELECTRIC STIMULATION UNATT THERAPEUTIC EXERCISES NEUROMUSCULAR RE-ED MANUAL THERAPY FUNC ACTIVITY 15 MIN HOT/COLD PACK ELECTRIC STIMULATION UNATT THERAPEUTIC EXERCISES NEUROMUSCULAR RE-ED MANUAL THERAPY THERAPEUTIC EXERCISES NEUROMUSCULAR RE-ED MANUAL THERAPY HOT/COLD PACK ELECTRIC STIMULATION UNATT THERAPEUTIC EXERCISES NEUROMUSCULAR RE-ED MANUAL THERAPY HOT/COLD PACK ELECTRIC STIMULATION UNATT PT EVALUATION THERAPEUTIC EXERCISES MANUAL THERAPY HOT/COLD PACK ELECTRIC STIMULATION UNATT Advance Directives Directive Yes / No Effective Date File Name No Information Encounters Encounter Description Practice Location Reason(s) For Visit Diagnoses Date Provider Providers Copied on Encounter [facility], [address] [facility] [address], [place], [place], [id number], tel:[phone] [facility] No Information 4 Jimmy Hernández. [address] [facility], [address], [place], [place], [facility], . tel: [phone] Referring Provider: Kortney Girard [facility] [address], [place], [address]. tel:[phone] [place] [address] [address], [place], [place], [id number], [place] tel:[phone] [facility] No Information 4 Jimmy Hernández. [address] [place] [address], [address], [place], [place], [facility], [place]. tel: [phone] Referring Provider: Kortney Girard [facility] [address], [place], [address]. tel:[phone] [place] [address] [facility] [address] [facility] [facility] [address], [place], [place], [id number], [place] tel:[phone] [facility] No Information 4 Jimmy Hernández. [address] [place] [address], [address], [place], [place], [facility], [place]. tel: [phone] Referring Provider: Kortney Girard [facility] [address], [place], [address]. tel:[phone] [place] [address] [address] [facility] [facility] [address], [place], [place], [id number], [place] tel:[phone] [facility] No Information 4 Jimmy Hernández. [address] [facility], [address], [place], [address], [place]. tel: [phone] Referring Provider: Kortney Girard [facility] [address], [place], [address]. tel:[phone] [place] [address] [address] [facility] [facility] [address], [place], [place], [id number], tel:[phone] [facility] No Information Apr-0 3-201 4 Jimmy Hernández. [address] [facility], [address], [place], [facility], . tel: [phone] Referring Provider: Kortney Girard [facility] [address], [place], [address]. tel:[phone], [place], [place], [id number], tel:[phone] [facility] No Information Apr-0 2-201 4 Jimmy Hernández. [address] [place] [address], [address], [place], [facility], . tel: [phone] Referring Provider: Kortney Girard [facility] [address], [place], [address]. tel:[phone] [address], [place], [place], [id number], tel:[phone] [facility] No Information Mar-2 7-201 4 Nazanincorby Izquierdo. [address] [place] [address], [address], [place], [facility], . tel: [phone] Referring Provider: Kortney Girard [facility] [address], [place], [address]. tel:[phone] [address], [place], [place], [id number], tel:[phone] [facility] No Information Mar-2 4-201 4 Jimmy Hernández. [address] [facility], [address], [place], [facility], . tel: [phone] Referring Provider: Kortney Girard [facility] [address], [place], [address]. tel:[phone] [address], [place], [place], [id number], [place] tel:[phone] [place] No Information Feb-2 2-201 3 Cardoso Sheela. [address] [place] [address], [address], [place], [address], [place]. tel: [phone] Referring Provider: Ariel Fuentes, [address] [place], [address]. tel:[phone] [place] [address] [address], [place], [place], [id number], tel:[phone] [facility] No Information 1 2-201 3 Cardoso Sheela. [address] [place] [address], [address], [place], [address], [place]. tel: [phone] Referring Provider: Ariel Fuentes, [address] [place], [address]. tel:[phone] [place] [address], [place], [place], [id number], tel:[phone] [facility] No Information Feb-0 8-201 3 Cardoso Sheela. [address] [place] [address], [address], [place], [address], [place]. tel: [phone] Referring Provider: Ariel Fuentes, [address] [place], [address]. tel:[phone] [place] [address], [place], [place], [id number], tel:[phone] [facility] No Information Feb-0 5-201 3 Cardoso Sheela. [address] [place] [address], [address], [place], [address], [place]. tel: [phone] Referring Provider: Ariel Fuentes, [address] [place], [address]. tel:[phone] [place], [place] [address], [place], [place], [id number], tel:[phone] [place] No Information 1-201 3 Cardoso Sheela. [address] [place], [place] [address], [address], . [phone] Referring Provider: Ariel Fuentes, [address] [place], [address]. tel:[phone], [id number], tel:[phone] [place] No Information 3 Cardoso Sheela. [address] [place] [address], [facility], . [phone] Referring Provider: Ariel Fuentes, [address] [place], [id number]. tel:[phone], [id number], tel:[phone] [place] No Information 3 Cardoso Sheela. [address] [place] [address], [facility], . [phone] Referring Provider: Ariel Fuentes, [address] [place], [id number]. tel:[phone] [place] [address], [id number], tel:[phone] [place] Pain in joint involving ankle and foot 3 Cardoso Sheela. [address] [place] [address], [address], [address], . [phone] Referring Provider: Ariel Fuentes, [address] [place], [id number]. tel:[phone] Family History Family Member Type Diagnosis Age At Onset No Information Payers Payer name Insurance type Covered constitution party ID Authoriza tion(s) No Information Social History Type Description Quantity Date Captured Comments Sex Female Smoking Status No Information Chief Complaint And Reason For Visit No Information Reason For Referral Reason For Referral No Information History Of Present Illness Encounter Date Complaint History Of Prese nt Illness No Information Functional Status Date Functional Assessmen t No Information Instructions Date Instruction Additional Infor mation No Information Assessments Type Assessment Date No Information Patient Care Teams Name Effective Dates (start - stop) Status Members No Information
--- OUTSIDE RECORDS SUMMARY | 2024-10-12 01:30 | XMS_ITS | Encounter Summary ---
Author Organization [facility] Address [address] [place] [address] Phone Care Team Providers Care Parachute Marker Name Role Phone Devan Breaux Primary Care Provider Mati Fletcher MD Unavailable Encounter Details Date Type Department Care Team (Late st Contact Info) Description 08/16/2021 Telephone [facility] [address] [place] [address] Mati Fletcher MD [address] [facility] [place] [address] [address] Social History Tobacco Use Types Packs/Day Years Used Date Smoking Tobacco: Former Cigarettes 1.5 35 1 975 - 2010 Smokeless Tobacco: Never Alcohol Use Standard Drinks/Week Comments Yes 0 (1 standard drink = 0.6 oz pur e alcohol) rarely PHQ-2 Answer Date Recorded Total Score - Questions 1-9 0 11/0 07/2020 Comments Unknown Sex and Gender Information Value Date Recorded Sex Assigned at Not on file Legal Sex Female 2:49 PM CDT Gender Identity Not on file Sexual Orientation Not on file documented as of this encounter Miscellaneous Notes * Telephone Encounter - Lindsay Negron - 08/16/2021 2:54 PM CST PT CALLED TO CANCEL APPOINTMENT FOR TOMORROW. PT STATES IT WAS A FOLLOW UP AFTER SHE WAS ON CPAP MACHINE. PT CAN'T GET A CPAP MACHINE, COMPANY HAD A RECALL AND ARE CATCHING UP WITH EXISTING PT. BEFORE THEY SERVICE NEW PT. PT. STATES SHE WILL RESCHEDULE AFTER SHE RECEIVES THE MACHINE. 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
--- OUTSIDE RECORDS SUMMARY | 2024-10-12 01:30 | XMS_ITS | Clinical Summary ---
Author Organization [facility] Address [address] [place] [address] Phone Care Team Providers Care Platinum And Palladium Kettle Tender Name Role Phone Kevin Silvestre MD Primary Care Provider [phone] Allergies No known active allergies Medications metoprolol tartrate (LOPRESSOR) 25 mg Oral tablet Take by mouth 2 times daily. 1.5 TABS Active LORazepam (ATIVAN) 1 mg Oral tablet Take 1 mg by mouth nightly as needed. Active HYDROcodone-ac etaminophen (VICODIN ES) 7.5-750 mg Oral Tab Take 1 Tab by mouth every 4 hours as needed. Active oxyCODONE-acet aminophen (PERCOCET) 5-325 mg Oral tablet Take 1 Tab by mouth every 4 hours as needed for Pain, Moderate. 40 Tab 0 2 Active HYDROcodone-ac etaminophen (XODOL 5/300) 5-300 mg Tablet Take 1 Tablet by mouth every 12 hours as needed for pain. Max Daily Amount: 2 Tablets 30 Tablet 02/22/2017 11:58 AM CDT 7 Active methylPREDNISo lone (MEDROL DOSPACK) 4 mg Tablets, Dose Pack USE DIRECTED 21 Tablet 07/29/2017 3:20 PM CUFF SLITTER 8 Active HYDROcodone-ac etaminophen (VICODIN) 5-300 mg Tablet Take 1 Tablet by mouth every 12 hours as needed for pain. Max Daily Amount: 2 Tablets 30 Tablet 01/08/2018 3:10 PM CDT 8 Active diclofenac sodium (VOLTAREN) 75 mg Tablet, Delayed Release (E.C.) Take 1 Tablet (75 mg) by mouth 2 times daily as needed for hand pain. 60 Tablet 05/02/2022 5:14 PM CDT 2 Active oxyCODONE-acet aminophen (PERCOCET) 5-325 mg tablet Take 1-2 tablets by mouth every six hours as needed for pain. Do not exceed 6 tablets in 24 hours. 32 Tablet 06/07/2022 6:18 PM CUFF SLITTER 2 Active penicillin V potassium (VEETID) 500 mg tablet Take two tablets now then take one tablet every 6 hours until gone 29 Tablet 06/07/2022 6:18 PM CUFF SLITTER 2 Active valACYclovir (Valtrex) 1 gram tablet Take 2 tablets by mouth every 12 hours for 1 day 4 Tablet 06/12/2022 4:01 PM CUFF SLITTER 2 Active acyclovir (ZOVIRAX) 400 mg tablet Take one tablet by mouth 3 times daily for 5 days as needed for fever blisters 30 Tablet 3 06/22/2022 2:32 PM CUFF SLITTER 2 Active semaglutide (Ozempic) 0.25 mg or 0.5 mg(2 mg/1.5 mL) Pen Injector Inject 0.5 mg by subcutaneous injection every 7 days for 4 weeks. 1.5 mL 2 Active albuterol sulfate HFA 90 mcg/actuation aerosol inhaler Take 1 Puff by inhalation every 4-6 hours as needed for shortness of breath. 8.5 Gram 08/14/2022 12:03 PM CUFF SLITTER 3 Active dulaglutide (Trulicity) 0.75 mg/0.5 mL injection Inject 0.5 mL (0.75 mg) by subcutaneous injection every 7 days. 2 mL 08/14/2022 12:03 PM CUFF SLITTER 3 Active escitalopram oxalate (Lexapro) 10 mg tablet Take 1 Tablet (10 mg) by mouth daily. 90 Tablet 3 12/04/2022 2:03 PM CDT 3 Active fluticasone propion-sal[place] (Advair Diskus) 250-50 mcg/dose disk inhaler Inhale 1 puff by inhalation route 2 times every day in the morning and evening approximately 12 hours apart 60 Each 5 08/09/2023 4:06 PM CUFF SLITTER 3 Active dulaglutide (Trulicity) 1.5 mg/0.5 mL injection INJECT 1.5 MG (0.5 ML) UNDER THE SKIN ONCE WEEKLY 6 mL 10/22/2022 4:45 PM CDT 3 Active escitalopram oxalate (Lexapro) 20 mg tablet Take 1 Tablet (20 mg) by mouth daily. 90 Tablet 01/07/2023 12:50 PM CDT 3 Active LORazepam (Ativan) 2 mg tablet Take 1 Tablet (2 mg) by mouth nightly as needed. 90 Tablet 1 06/25/2023 3:00 PM CUFF SLITTER 3 Active escitalopram oxalate (Lexapro) 20 mg tablet Take 1 Tablet (20 mg) by mouth daily. 90 Tablet 3 02/14/2024 3:20 PM CDT 3 Active fluticasone propion-salmet [place] (Advair Diskus) 250-50 mcg/dose disk inhaler Inhale 1 puff by mouth 2 times every day in the morning and evening approximately 12 hours apart 60 Each 5 02/14/2024 3:20 PM CDT 3 Active LORazepam (Ativan) 2 mg tablet Take 1 Tablet (2 mg) by mouth daily at bedtime. 90 Tablet 1 4 Active escitalopram oxalate (Lexapro) 20 mg tablet Take 1 Tablet (20 mg) by mouth daily. 90 Tablet 3 04/07/2024 5:43 PM CDT 4 Active phentermine (ADIPEX P) 37.5 mg tablet Take 1 Tablet (37.5 mg) by mouth daily before breakfast. 90 Tablet 4 Active Encounters Date Type Department Care Team Description 10/07/2024 External Device Data [facility] ABSTRACTION Provider, Abstract 09/26/2024 External Device Data [facility] Provider, Abstract 09/25/2024 External Device Data [facility] Provider, Abstract 09/23/2024 External Device Data [facility] Provider, Abstract 09/23/2024 External Device Data [facility] Provider, Abstract 09/09/2024 External Device Data [facility] Provider, Abstract 08/13/2024 External Device Data [facility] Provider, Abstract from Last 3 Months Immunizations Immunization Administration Dates Next Due INFLUENZA VACCINE QUADRIVALENT 6 MOS UP PF IM Social History Tobacco Use Types Packs/Day Years Used Date Smoking Tobacco: Former Cigarettes Q uit: 10/13/2010 Alcohol Use Standard Drinks/Week Comments No 0 (1 standard drink = 0.6 oz pur e alcohol) Comments Unknown Sex and Gender Information Value Date Recorded Sex Assigned at Not on file Legal Sex Female 6:11 AM CUFF SLITTER Gender Identity Not on file Sexual Orientation Not on file Occupation Industry Job Start Date Job End Date Not on file Not on file Not on file Not on file Last Filed Vital Signs Vital Sign Reading Time Taken Comments Blood Pressure 130/80 05/16/2012 11:04 AM CDT Pulse 79 05/16/2012 11:04 AM CDT Temperature 35.8 C (96.4 F) 05/16/2012 10:06 AM CDT Respiratory Rate 18 05/16/2012 11:0 4 AM CDT Oxygen Saturation 95% 05/16/2012 11: 04 AM CDT Inhaled Oxygen Concentration - - Weight 112.9 kg (248 lb 12.8 oz) 05/16/2012 6:49 AM CDT Height 177.8 cm (5' 10 ) 05/15/2012 2:21 PM CDT Body Mass Index 35.7 05/15/2012 2:21 PM CDT Plan of Treatment Health Maintenance Due Date Last Done Comments DTAP/TDAP/TD VACCINES (1 - Tdap) 1978 BREAST CANCER SCREENING 1999 COLORECTAL SCREENING 2004 Colorectal Cancer Screening 2004 FIT-DNA Q 3 years 2004 FIT/FOBT Q 1 year 2004 Flex Sig/CT Colonography Q 5 years 2004 PNEUMOCOCCAL VACCINE 50+ YEARS (1 of 1 - PCV) 05/01/20 09 ZOSTER VACCINE (1 of 2) 2009 INFLUENZA VACCINE (#1) 2024 05/02/2022 RSV VACCINE (60+ or ) (1 - 1-dose 75+ series) 2034 OSTEOPOROSIS SCREENING Completed 12/07/[id number] [address] RX [employer] (INTERNAL) [facility] RX [employer] Commercial RX [employer] Commercial RX [employer] Commercial [[id number] RX MEDIMPACT Member Subscriber Plan / Payer (Ef fective for All Dates) Name:Marissa Leung Relation to Subscriber:Self Name:Marissa Leung Payer ID:Not on file Group ID:[id number] Type:RX Medicare Part D Address: [place] Advance Directives For more information, please contact: [phone] * Full Code (Latest Code Status on File) Date Activated Date Inactivated Comments 05/16/2012 8:37 AM 05/16/2012 1:15 PM * Full Code Date Activated Date Inactivated Comments 05/16/2012 6:50 AM 05/16/2012 8:37 AM Care Teams Platinum And Palladium Kettle Tender Relationship Specialty Start Date End Date Kevin Silvestre MD PCP - General 07/08/15
--- OUTSIDE RECORDS SUMMARY | 2024-10-12 01:30 | XMS_ITS | Clinical Summary ---
Author Organization [facility] Address [address], [facility] [address] [place] [address] Phone Care Team Providers Care Metal Door Assembler Name Role Phone Devan Breaux Primary Care Provider [phone] Mati Fletcher MD Unavailable [phone] Allergies No known active allergies Medications LORazepam (ATIVAN) 2 MG Tablet 05/13/2021 Active acyclovir (ZOVIRAX) 400 MG Tablet 06/21/2022 Active escitalopram (LEXAPRO) 20 MG Tablet 06/25/2023 Active Active Problems Problem Noted Date Diagnosed Date Polycythemia 05/22/2021 Immunizations Immunization Administration Dates Next Due Influenza Vaccine, Quadrivalent, PF 05/17/2020,1 08/17/2017 Influenza, Injectable, Quadrivalent 05/25/2019 Pneumococcal Vaccine Adult - 23 Valent 0 Zoster Vaccine Recombinant 09/05/2019,05/25/2019 Family History Medical History Relation Name Comments Cancer Mother kidney Relation Name Status Comments Father Mother Alive Social History Tobacco Use Types Packs/Day Years Used Date Smoking Tobacco: Former Cigarettes 1.5 35 1 975 - 2009 Smokeless Tobacco: Never Tobacco Cessation:Counseling [...] Sign Reading Time Taken Comments Blood Pressure 138/82 07/08/2023 2:10 PM AOC DIRECTOR [employer]BAT PLANS OFFICER Pulse 68 07/08/2023 2:10 PM AOC DIRECTOR [employer]ANS OFFICER Temperature 36.5 C (97.7 F) 07/08/2023 2:10 PM AOC DIRECTOR [employer]ANS OFFICER Respiratory Rate 18 07/08/2023 2:10 PM AOC DIRECTOR [employer] PLANS OFFICER Oxygen Saturation 94% 07/08/2023 2:10 PM AOC DIRECTOR [employer] PLANS OFFICER Inhaled Oxygen Concentration - - Weight 112.8 kg (248 lb 11.2 oz) 07/08/2023 2:10 PM AOC DIRECTOR [employer]ANS OFFICER Height 177.8 cm (5' 10 ) 07/08/2023 2:10 PM AOC DIRECTOR [employer]ANS OFFICER Body Mass Index 35.68 07/08/2023 2:10 PM AOC DIRECTOR [employer]BAT [employer]ANS OFFICER Plan of Treatment Health Maintenance Due Date Last Done Comments DEXA Bone Density 1959 Hepatitis C Virus (HCV) Screening 1959 TdaP Immunization 1959 Pap Smear 1980 Cervical Cancer Screening (CCS) 1989 HPV/Cotest 1989 Colonoscopy 2004 Colorectal Cancer Screening 2004 Cologuard 2009 Immunochemical Fecal Occult Blood 2009 Pneumococcal Immunization (50+ years) (2 of 2 - PCV) 10/06/2020 10/07/2019 Mammogram 08/20/2023 08/20/2022, 04/21, 03/29/2020, Additional history exists Influenza Immunization (#1) 2024 11/0 03/2023, 05/02/2022, 05/17/2020, Additional history exists SARS-COV-2 Immunization ( season) 2024 07/08/2023, 05/14/2022, 10/26/2021, Additional history exists Zoster Immunization Completed 09/05/2019, 9 Pneumococcal Immunization Combined Discontinued 10/07/2019 Respiratory Syncytial Virus (RSV) Immunization (Adult) Completed 05/30/2023 Lung Cancer Screening Discontinued 07/17/2023 , 02/19/2021, 12/21/2014, Additional history exists Hepatitis B Immunization Aged Out No longer eligible based on patient's age to complete this topic Meningococcal Immunization (ACWY) Aged Out No longer eligible based on patient's age to complete this topic Rotavirus Immunization Aged Out No lo nger eligible based on patient's age to complete this topic Procedures Procedure Name Priority Date/Time Associated Diagnosis Comments CT CHEST W/O CONTRAST Routine 07/17/2023 1:08 PM AOC DIRECTOR [employer] OFFICER Pulmonary nodule from Last 3 Months or Most Recently Relevant to Health Maintenance Results * CT CHEST W/O CONTRAST (07/17/2023 1:08 PM AOC DIRECTOR [employer]BAT PLANS OFFICER) Anatomical Region Laterality Modality Chest N/A Computed Tomogra phy Narrative 07/17/2023 1:51 PM AOC DIRECTOR [employer]BAT PLANS OFFICER EXAMINATION: CT CHEST W/O CONTRAST 07/17/2023 INDICATIONS: Solitary pulmonary nodule, follow-up. Wheezing. COMPARISON: Outside CT chest 02/19/2021 TECHNIQUE: Noncontrast CT images of the chest were obtained. Multiplanar and MIP reconstructions were created. A dose lowering technique was used for this procedure, which may include, but is not limited to, dose reduction technique(s), automated exposure control techniques, use of iterative reconstruction techniques, and ALARA (as low as reasonably achievable) or ALARA/IMAGE Gently techniques. FINDINGS: Cardiovascular: Normal heart size. Trace pericardial fluid again noted. Atherosclerotic calcifications of the coronary arteries and thoracic aorta. The thoracic aorta is normal in caliber. Aberrant right subclavian artery again noted. Pulmonary: Moderate pulmonary emphysema. There are multiple small bilateral pulmonary nodules which do not appear significantly changed dating back to at least February 2021, which favors benignity. No suspicious new or enlarging pulmonary nodules are appreciated. No consolidation or pleural effusion. The large airways are clear. Lymphatics: No lymphadenopathy is appreciated in the chest. Upper abdomen: Hepatic steatosis. Status post cholecystectomy. Small left adrenal nodularity is unchanged. Atherosclerotic calcifications. Musculoskeletal: Degenerative changes of the spine. 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 IMPRESSION 1. Multiple small bilateral pulmonary nodules do not appear significantly changed dating back to at least February 2021, which favors benignity. 2. Moderate pulmonary emphysema. Electronically signed by: SHOSHANA GRAJEDA MD Date of Signature: 07/17/2023 13:51:44 Procedure Note Shoshana Grajeda MD - 07/17/2023 EXAMINATION: CT CHEST W/O CONTRAST 07/17/2023 INDICATIONS: Solitary pulmonary nodule, follow-up. Wheezing. COMPARISON: Outside CT chest 02/19/2021 TECHNIQUE: Noncontrast CT images of the chest were obtained. Multiplanar and MIPreconstructions were created. A dose lowering technique was used for this procedure, which may include,but is not limited to, dose reduction technique(s), automated exposurecontrol techniques, use of iterative reconstruction techniques, and ALARA(as low as reasonably achievable) or ALARA/IMAGE Gently techniques. FINDINGS: Cardiovascular: Normal heart size. Trace pericardial fluid again noted.Atherosclerotic calcifications of the coronary arteries and thoracicaorta. The thoracic aorta is normal in caliber. Aberrant rightsubclavian artery again noted. Pulmonary: Moderate pulmonary emphysema. There are multiple smallbilateral pulmonary nodules which do not appear significantly changeddating back to at least February 2021, which favors benignity. Nosuspicious new or enlarging pulmonary nodules are appreciated. Noconsolidation or pleural effusion. The large airways are clear. Lymphatics: No lymphadenopathy is appreciated in the chest. Upper abdomen: Hepatic steatosis. Status post cholecystectomy. Smallleft adrenal nodularity is unchanged. Atherosclerotic calcifications. Musculoskeletal: Degenerative changes of the spine. 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 IMPRESSION 1. Multiple small bilateral pulmonary nodules do not appear significantlychanged dating back to at least February 2021, which favors benignity. 2. Moderate pulmonary emphysema. Electronically signed by: SHOSHANA GRAJEDA MD Date of Signature: 07/17/2023 13:51:44 Awa Key APRN, CLOUD SECURITY ARCHITECT IMG CT ORDERABLES Fin al Result from Last 3 Months or Most Recently Relevant to Health Maintenance Insurance [facility] Care Teams Metal Door Assembler Relationship Specialty Start Date End Date Devan Breaux [address] [place] [id number] PCP - General Family Medicine 05/09/21 Mati Fletcher MD [address] [place] [id number] Consulting Physician Oncology 05/09/21
[2024-10-12 10:29] VITALS: BP 150/92; PULSE 88; RESP 18; TEMP 36.1; O2SAT 97
--- NOTE | 2024-10-12 10:38 | P.PNAN_ITS ---
Anes - Initial Pre Proc Eval Procedure: Operation Date: 10/12/24 11:30 Proposed Procedures p Colonoscopy - Isaiah Rankin MD Date/Time: 10/12/24 10:38 Surgeon: Isaiah Rankin MD Pre Op Diagnosis: Personal history of colon polyps, unspecified Patient Data Age: 64 Gender: F Height: 1.75 m Weight: 102.4 kg Last Vital Signs Temp 97 F L 10/12/24 10:29 Pulse 88 10/12/24 10:29 Resp 18 10/12/24 10:29 BP 150/92 H 10/12/24 10:29 Pulse Ox 97 10/12/24 10:29 O2 Del Method Room Air 10/12/24 10:29 Allergies Allergy/AdvReac Type Severity Reaction Status Date / Time No Known Allergies Allergy Mild Verified 10/12/24 10:27 Home Medications ?Medication ?Instructions ?Recorded ?Confirmed ?Type lorazepam 2 mg tablet (Ativan) 2 mg PO PRN PRN Anxiety 09/15/21 10/06/24 History Patient hx anesthesia problems: none Family hx anesthesia problems: none Results Review: All pre-operative results and documents have been reviewed as part of the pre- operative evaluation. [facility] Past Medical History Medical History COPD (chronic obstructive pulmonary disease) Arthritis Adenomatous colon polyp History of hepatitis C History of anxiety History of depression Surgical History Surgical History History of cardiac radiofrequency ablation History of appendectomy Family History Family History Other Family history of cancer Heart disease Hypertension Social History Social History Smoking packs per day: 1 Smoking cigarettes per day: 20.0 Years smoked: 35 Smoking pack-years: 35.00 Smoking status: Former smoker Tobacco type: cigarettes Alcohol intake: current Alcohol use details: a few times a year Substance use: current Substance use type: marijuana Other substance usage details: smokes marijuana daily Living arrangements: with family Occupation/Education: unemployed Gender identity (if verbalized by the patient): Female Spiritual care concerns: No Anes - Eval Final PreProcedure Day of Procedure 10/12/24 10:38 Patient weight: obese Lungs: normal air movement Airway: Mallampati scale class II Neurological: alert and oriented Last oral intake: >/= 8 hours ASA classification: III Emergent: no Anesthetic plan: proceed Anesthesia type and monitoring: general GIVS and standard monitoring Results Review: All pre-operative results and documents have been reviewed as part of the pre- operative evaluation. COPD ex smoker quit 2009. Pt smokes marijuana 4 x daily, hx of Hep C treated successfully per pt. Informed Consent: The patient's anesthetic plan and its attendant risks and benefits were discussed with the patient/family/POA. Questions were solicited and answers provided to the satisfaction of the patient/family/POA.
[2024-10-12] MEDS: LACTATED RINGERS 1,000 ML 150 ML IV CONT (10:42)
--- NOTE | 2024-10-12 10:58 | PM.HPGS ---
History of Present Illness History of Present Illness Consent: Risks, benefits, and alternatives have been discussed and questions answered. Patient agrees to proceed with procedure. Chief complaint: Personal history of colon polyps, unspecified Narrative: Marissa Leung is a 64 year old female with colon polyp in 2021 Review of Systems Review of Systems: All systems reviewed & are unremarkable except as noted in HPI and below PMFSH Past Medical History Medical History COPD (chronic obstructive pulmonary disease) Arthritis Adenomatous colon polyp History of hepatitis C History of anxiety History of depression Surgical History Surgical History History of cardiac radiofrequency ablation History of appendectomy Family History Family History Other Family history of cancer Heart disease Hypertension Social History Social History Smoking packs per day: 1 Smoking cigarettes per day: 20.0 Years smoked: 35 Smoking pack-years: 35.00 Smoking status: Former smoker Tobacco type: cigarettes Alcohol intake: current Alcohol use details: a few times a year Substance use: current Substance use type: marijuana Other substance usage details: smokes marijuana daily Living arrangements: with family Occupation/Education: unemployed Gender identity (if verbalized by the patient): Female Spiritual care concerns: No Meds Home Medications and Allergies Home Medications ?Medication ?Instructions ?Recorded ?Confirmed ?Type lorazepam 2 mg tablet (Ativan) 2 mg PO PRN PRN Anxiety 09/15/21 10/06/24 History Allergies Allergy/AdvReac Type Severity Reaction Status Date / Time No Known Allergies Allergy Mild Verified 10/12/24 10:27 Vital Signs Vital Signs - 24 hr 10/12/24 10:29 Temperature 97 F L Pulse Rate 88 Respiratory Rate 18 Blood Pressure 150/92 H Pulse Oximetry 97 Oxygen Delivery Room Air Exam Const: General: comfortable and no acute distress HENMT: Face/Nose/Sinus: Normal nares present Eyes: General: appearance normal, both eyes and all related structures Neck: Neck: no JVD Resp: Auscultation: clear to auscultation bilaterally Cardio: Rate: regular rate Rhythm: regular rhythm GI: Inspection: non-distended GI Palp: Yes Soft to palpation Skin: General skin exam: normal color Neuro: Speech: normal speech Extrem: General: normal to inspection Psych: Mental Status: mental status grossly normal Assessment and Plan Assessment and plan (1) Adenomatous colon polyp: Code(s): D12.6 - Benign neoplasm of colon, unspecified Status: Acute Assessment and Plan: colonoscopy
[2024-10-12 11:17] VITALS: BP 150/77; PULSE 99; RESP 23; O2SAT 97
[2024-10-12 11:25] VITALS: BP 147/73; PULSE 91; RESP 21; O2SAT 97
[2024-10-12 11:34] VITALS: BP 116/80; PULSE 92; RESP 24; O2SAT 97
== END 2024-10-12 11:44 | disposition home or self-care (01) ==
PROVIDERS: Visit Provider Internal Medicine Gastroenterology
PROC: 0DJD8ZZ Inspection of Lower Intestinal Tract, Via Natural or Artificial Opening Endoscopic (ICD-10-PCS; CPT 45378; principal; 2024-10-12 11:30)
DX: Z12.11 Encounter for screening for malignant neoplasm of colon (principal); D12.2 Benign neoplasm of ascending colon; D12.3 Benign neoplasm of transverse colon; D12.4 Benign neoplasm of descending colon; K57.30 Diverticulosis of large intestine without perforation or abscess without bleeding; K64.8 Other hemorrhoids; Z87.891 Personal history of nicotine dependence; F12.90 Cannabis use, unspecified, uncomplicated; E66.9 Obesity, unspecified; Z68.33 Body mass index [BMI] 33.0-33.9, adult
CPT/HCPCS: 45385; 88305; J2704; J7120